=== PATIENT | female | born 2000 ===

== ENCOUNTER 2020-04-25 12:54 | Emergency (ER) | payer OTHER, SELFPAY ==
[2020-04-25] MEDS ORDERED: Ampicillin/Sulbactam 3 GM in Sodium Chloride 0.9% 100 ML IVPB SCH (14:15)
[2020-04-25 14:40] LABS: #Monocytes 0.5 10x3/uL (0.0-1.1); #Neutrophils 2.5 10x3/uL (1.5-8.4); %Basophils 0.9 % (0.0-2.0); %Eosinophils 0.4 % (0.0-6.0); %Lymphocytes 33.6 % (18.0-47.0); %Monocytes 10.2 % (0.0-10.0); %Neutrophils 54.7 % (40.0-75.0); Hemoglobin 13.1 g/dL (12.0-15.5); Mean Corpuscular HGB CONC 32.8 g/dL (32.0-36.0); Mean Corpuscular Hemoglobin 28.3 pg (27.0-33.0); Mean Corpuscular Volume 86.4 fl (81.6-98.3); Mean Platelet Volume 11.5 fl (7.4-10.4); Platelet Count 222 10x3/uL (150-450); RBC Distribution Width 12.9 % (11.5-14.5); Red Blood Cell (RBC) Count 4.63 10x6/uL (3.90-5.03); White Blood Cell (WBC) Count 4.5 10x3/uL (3.5-10.5)
[2020-04-25 14:46] LABS: BHCG - Serum Negative (NEGATIVE); Pregs Control Background? CLEAR/WHITE (CLR/WHITE); Pregs Control Bar Appear? YES (CONTROL BAR)
[2020-04-25 14:50] LABS: Anion Gap 12 mmol/L (10-20); BUN (Urea Nitrogen) 8 mg/dL (7.0-18.7); Calc. Creatinine Clearance 0 mL/min (70-130); Calcium 9.6 mg/dL (7.8-10.44); Carbon Dioxide 23 mmol/L (22-29); Chloride 107 mmol/L (98-107); Glucose 76 mg/dL (70-105); Potassium 3.7 mmol/L (3.5-5.1); Sodium 138 mmol/L (136-145)
[2020-04-25] MEDS ORDERED: Ibuprofen 800 MG TAB ONE (15:41)
== END 2020-04-25 15:46 | disposition home or self-care (01) ==
LOC: CSHERS 12:54
DX: L03.213 Periorbital cellulitis (principal)
CPT/HCPCS: 70481; 80048; 84703; 85025; 96365; J0295; J3490